=== PATIENT | male | born 1970 | race Asian ===

== ENCOUNTER 2016-08-06 10:00 | Inpatient (IN) | payer BC, MEDICARE ==
[~2016-08-06] VITALS: Ht 165.1 cm; Wt 91.8 kg
[2016-08-06] MEDS ORDERED: ONDANSETRON 4 MG VIAL ONE (10:32)
[2016-08-06] MEDS ORDERED: SODIUM CHLORIDE 0.9% 1,000 ML ONE (11:07)
[2016-08-06] MEDS ORDERED: PROMETHAZINE 25 MG/ML VIAL ONE (11:07)
[2016-08-06] MEDS ORDERED: DIPHENHYDRAMINE 50 MG/ML VIAL ONE (11:11)
[2016-08-06] MEDS ORDERED: PANTOPRAZOLE 40 MG VIAL IV ONE (12:39)
[2016-08-06] MEDS ORDERED: SODIUM CHLORIDE 0.9% 250 ML IV ONE (12:39)
[2016-08-06] MEDS ORDERED: DEXTROSE 50% SYRINGE 50 ML IV PRN (13:05)
[2016-08-06] MEDS ORDERED: GLUCAGON 1 MG VIAL IM PRN (13:05)
[2016-08-06] MEDS ORDERED: ONDANSETRON 4 MG VIAL IV PUSH PRN (13:05)
[2016-08-06] MEDS ORDERED: VANCOMYCIN 1,500 MG in SODIUM CHLORIDE 0.9% 250 ML IV ONE (13:15)
[2016-08-06] MEDS ORDERED: ACETAMINOPHEN 325 MG TAB PO PRN (13:15)
[2016-08-06] MEDS: PANTOPRAZOLE 80 MG in SODIUM CHLORIDE 0.9% 250 ML IV SCH (14:06)
[2016-08-06 14:38] VITALS: BP_SYST 194; RESP 16; Ht 165.1 cm; Wt 91.8 kg
[2016-08-06] MEDS: CEFTRIAXONE 1 GM in SODIUM CHLORIDE 0.9% 50 ML IV SCH (15:29)
[2016-08-06] MEDS: ERYTHROMYCIN 250 MG TAB PO SCH ×2 (16:00→20:37)
[2016-08-06] MEDS: METOCLOPRAMIDE 10 MG/2 ML VIAL IV PUSH SCH (16:37)
[2016-08-06 17:05] VITALS: BP_SYST 124; RESP 16; TEMP 99.4
[2016-08-06 20:05] VITALS: BP_SYST 151; RESP 20; TEMP 99.6
[2016-08-06] MEDS: BRIMONIDINE 0.15% DROPS EYE EACH SCH (20:37)
[2016-08-06] MEDS: METOPROLOL XL 25 MG TAB PO SCH (20:37)
[2016-08-06] MEDS: ALPRAZOLAM 0.25 MG TAB PO PRN (21:31)
[2016-08-07 00:13] VITALS: BP_SYST 109; RESP 20; TEMP 99.1
[2016-08-07] MEDS: PANTOPRAZOLE 80 MG in SODIUM CHLORIDE 0.9% 250 ML IV SCH ×3 (00:20→21:01)
[2016-08-07 04:07] VITALS: BP_SYST 153; RESP 20; TEMP 98.1
[2016-08-07] MEDS: METOCLOPRAMIDE 10 MG/2 ML VIAL IV PUSH SCH ×3 (06:09→18:02)
[2016-08-07 07:25] VITALS: BP_SYST 152; RESP 20; TEMP 97.5
[2016-08-07] MEDS ORDERED: GLYCOPYRROLATE 0.2 MG/ML VIAL IV ONE (07:40)
[2016-08-07] MEDS ORDERED: MIDAZOLAM 2 MG/2 ML INJ IV ONE (07:40)
[2016-08-07] MEDS ORDERED: PROPOFOL 50ML PER ML IV ONE (07:40)
[2016-08-07] MEDS ORDERED: METOCLOPRAMIDE 10 MG/2 ML VIAL IV PUSH ONE (07:40)
[2016-08-07] MEDS ORDERED: ONDANSETRON 4 MG VIAL IV PUSH ONE (07:40)
[2016-08-07] MEDS ORDERED: LIDOCAINE 2% SYR 5 ML IV ONE (07:40)
[2016-08-07] MEDS ORDERED: MISSING DOSE XX ONE (10:00)
[2016-08-07] MEDS: ERYTHROMYCIN 250 MG TAB PO SCH ×3 (10:22→21:00)
[2016-08-07] MEDS: METOPROLOL XL 25 MG TAB PO SCH ×2 (10:22→21:00)
[2016-08-07] MEDS: BRIMONIDINE 0.15% DROPS EYE EACH SCH ×2 (10:22→21:00)
[2016-08-07] MEDS: CEFTRIAXONE 1 GM in SODIUM CHLORIDE 0.9% 50 ML IV SCH (10:23)
[2016-08-07 11:37] VITALS: BP_SYST 129; RESP 18; TEMP 98.2
[2016-08-07 16:27] VITALS: BP_SYST 135; RESP 18; TEMP 98
[2016-08-07] MEDS: ALPRAZOLAM 0.25 MG TAB PO PRN (18:06)
[2016-08-07 20:19] VITALS: BP_SYST 152; RESP 18; TEMP 98.1
[2016-08-08] VITALS (9 sets, daily range): BP systolic 91–178; RESP 12–18; TEMP 97–98.9
[2016-08-08] MEDS ORDERED: SALINE FLUSH 10 ML FLUSH PRN (05:30)
[2016-08-08] MEDS ORDERED: SODIUM CHLORIDE 0.9% FLUSH BAG 500 ML IV SCH (06:00)
[2016-08-08] MEDS: METOCLOPRAMIDE 10 MG/2 ML VIAL IV PUSH SCH ×2 (06:03→11:57)
[2016-08-08] MEDS: PANTOPRAZOLE 80 MG in SODIUM CHLORIDE 0.9% 250 ML IV SCH (06:04)
[2016-08-08] MEDS: METOPROLOL XL 25 MG TAB PO SCH (07:35)
[2016-08-08] MEDS ORDERED: SALINE FLUSH 10 ML FLUSH SCH (08:00)
[2016-08-08] MEDS: CEFTRIAXONE 1 GM in SODIUM CHLORIDE 0.9% 50 ML IV SCH (09:05)
[2016-08-08] MEDS: BRIMONIDINE 0.15% DROPS EYE EACH SCH (09:06)
[2016-08-08] MEDS: ERYTHROMYCIN 250 MG TAB PO SCH (09:06)
== END 2016-08-08 14:34 | disposition home or self-care (01) | DRG 73 ==
LOC: ENRESERVTM → ENRESERVDT → ER 10:00 → EMR 13:04 → 5THW 14:28 → OBSVTOIN 08-07 11:57 → ENPENDDIS 08-07 11:57
PROVIDERS: ADMIT Internal Medicine Nephrology; ATTEND Internal Medicine Nephrology
PROC: 0DB48ZX Excision of Esophagogastric Junction, Via Natural or Artificial Opening Endoscopic, Diagnostic (ICD-10-PCS; 2016-08-08)
PROC: 0DB98ZX Excision of Duodenum, Via Natural or Artificial Opening Endoscopic, Diagnostic (ICD-10-PCS; principal; 2016-08-08 07:20)
CPT/HCPCS: 74022; 88305; 88311; 93005; 96361; 96365; 96375